=== PATIENT | male | born 1965 | race Asian ===

== ENCOUNTER 2016-06-04 10:59 | Inpatient (IN) | payer OTHER ==
[~2016-06-04] VITALS: Ht 167.6 cm; Wt 71.2 kg
[2016-06-04 11:25] VITALS: BP 149/94
--- NOTE | 2016-06-04 11:32 | NUR ---
Patient to bed 7.
--- NOTE | 2016-06-04 11:45 | NUR ---
PATIENT REFERRED FROM URGENT CARE FOR RLQ PAIN
--- NOTE | 2016-06-04 11:53 | NUR ---
SEEN BY PA
--- NOTE | 2016-06-04 11:59 | NUR ---
51/M presents to ED for evaluation of abdominal pain x 1 week. Pt was seen at an urgent care this morning and was referred to ED for further evaluation. Pt describes pain starting at epigastric area a week ago and now is c/o RLQ pain. Pt denies N/V/D, denies changes in appetite. Patient states he has been taking Motrin for pain but with little improvement. Patient denies any fever or chills. Abdomen soft, non tender with active bowel sounds x4 quadrants. Skin warm and dry, normal in color for ethnicity. Afebrile. Pt c/o pain with palpation to RLQ. Pt is AOX4, speaking swazi but also bhutanese speaking. I offered the patient a assistant women's basketball coach and he was okay with speaking swazi. I advised him we have translation if he has any questions and does not understand anything.
[2016-06-04] MEDS ORDERED: NACL 0.9% 1,000 ML IV SCH (12:06)
[2016-06-04] MEDS ORDERED: HYDROmorphone PFS 2 MG/ML SYR IVP ONE (12:10)
[2016-06-04] MEDS ORDERED: ONDANSETRON 4 MG/2 ML VIAL IVP ONE (12:10)
--- NOTE | 2016-06-04 12:15 | NUR ---
Pt last had breakfast this morning around 1000.
--- NOTE | 2016-06-04 12:24 | NUR ---
Patient being evaluated by physician at bedside.
--- NOTE | 2016-06-04 12:31 | NUR ---
Consent for CT signed by patient. I offered patient the translation phones but he preferred Portuguese. I advised if at any time he does not understand something or has a questions and wants Anguillan translation we can utilize the translation phones. All questions addressed.
--- NOTE | 2016-06-04 12:46 | NUR ---
Patient appears to be resting comfortably in bed. Vital Signs within normal limits. Respirations even and unlabored.
--- NOTE | 2016-06-04 12:53 | NUR ---
Patient taken to CT via gurney accompanied by CT techs.
--- NOTE | 2016-06-04 13:13 | NUR ---
Patient returned from CT and placed back into bed 7. IV fluids re-started.
--- NOTE | 2016-06-04 13:15 | NUR ---
Upon returning from CT, pt is c/o 8/10 pain to epigastric area and headache. Pt also c/o dizziness at this time. Dr. Car made aware.
--- NOTE | 2016-06-04 13:22 | NUR ---
Pt assisted to restroom.
--- NOTE | 2016-06-04 13:24 | NUR ---
Pt assisted back into bed 7. Placed back onto machine chocolate molder, pulse oximetry and blood pressure monitoring. VSS. Warm blanket and pillow provided. Pt placed in a position of comfort. Lights dimmed. All needs met.
[2016-06-04] MEDS ORDERED: LEVOFLOXACIN 750 MG/D5W PREMIX 150 ML IV ONE (14:00)
[2016-06-04] MEDS ORDERED: HYDROmorphone 1 MG/ML AMP IVP ONE (14:00)
[2016-06-04] MEDS ORDERED: metroNIDAZOLE 500 MG/NS PREMIX 100 ML IV ONE (14:00)
--- NOTE | 2016-06-04 14:05 | NUR ---
Dr. Car re-evaluating patient at bedside.
[2016-06-04] MEDS ORDERED: LORazepam 2 MG/ML VIAL IVP PRN (14:10)
[2016-06-04] MEDS ORDERED: ZESTRIL20 MG PO (14:30)
[2016-06-04] MEDS ORDERED: ONDANSETRON 4 MG/2 ML VIAL IVP STA (14:31)
--- NOTE | 2016-06-04 14:31 | NUR ---
Pt is noted with nausea and vomiting. Emesis bag provided. Dr. Car made aware.
--- NOTE | 2016-06-04 14:35 | NUR ---
Called M/S for report. Nurse unable to take report at this time. They will call when report can be given.
--- NOTE | 2016-06-04 14:58 | NUR ---
Pt expresses relief from nausea at this time. No longer vomiting. Pt resting calmly at this time. VSS. Levaquin running with no signs of infiltrations.
--- NOTE | 2016-06-04 15:12 | NUR ---
Patient will be admitted to care of Dr. Ott. Admited to Med/Surg. Will go to room 111-B. Belongings list completed. Report to Audie NEFF.
--- NOTE | 2016-06-04 15:15 | NUR ---
Dr. Hill is evaluating patient at bedside.
--- NOTE | 2016-06-04 15:38 | NUR ---
OR at bedside to take patient to surgery.
--- NOTE | 2016-06-04 15:43 | NUR ---
Report given to TAWANDA Holm from OR. yl was given to OR to be given over in OR. Pt taken over to OR via nola accompanied by Noman NEFF and Alta. I updated M/S nurse Audie about patient's status.
[2016-06-04 16:25] VITALS: BP 147/85
--- NOTE | 2016-06-04 16:25 | NUR ---
ADMITTED PT FROM ER, ALERT AND ORIENTED X4. BREATHING EVENLY AND UNLABORED ON ROOM AIR, KEPT HOB ELEVATED AT LEAST 30 DEGREES. NO SIGNS OF ACUTE DISTRESS. SKIN IS INTACT, WARM AND DRY. PT NOTED WITH 5/10 ABDOMINAL PAIN, PT WAS MEDICATED FROM ER AND VERBALIZED "PAIN IS BETTER". ALSO WITH NAUSEA AND VOMITING, NOTED 200ML'S OF GASTRIC CONTENT. WILL MEDICATE ORDERED. ABLE TO PERFORM ADL'S WITH STANDBY ASSIST, ABLE TO VOID INDEPENDENTLY WITH NO COMPLAINS. SAFETY PRECAUTIONS MAINTAINED. ORIENTED TO HOSPITAL ENVIRONMENT. CALL LIGHT WITHIN REACH. REPORT RECEIVED FROM OR NURSE. TO DO SURGERY TODAY LAP POSSIBLE OPEN APPENDECTOMY WITH DR. ECHAVARRIA. CONSENT ALREADY OBTAINED REPORTED.
[2016-06-04] MEDS ORDERED: LABETALOL 100 MG/20 ML VIAL IV SCH (16:38)
[2016-06-04] MEDS: LEVOFLOXACIN 750 MG/D5W PREMIX 150 ML IV SCH (16:49)
[2016-06-04] MEDS: ONDANSETRON 4 MG/2 ML VIAL IVP PRN (16:59)
[2016-06-04] MEDS: NACL 0.9% 1,000 ML IV SCH (17:07)
--- NOTE | 2016-06-04 17:36 | NUR ---
PT WENT OFF UNIT TO OR FOR PROCEUDRE, Addendum: 06/04/16 at 1756 by Audie Deras RN PT WENT OFF UNIT TO OR FOR PROCEDURE, CONSENT OBTAINED, PT IS ALERT AND ORIENTED, NO SIGNS OF ACUTE DISTRESS. ENDORSED TO ASSIGNED OR NURSE FOR CONTINUITY OF CARE
[2016-06-04] MEDS ORDERED: PROPOFOL 200 MG/20 ML VIAL IV ONE (17:41)
[2016-06-04] MEDS ORDERED: ONDANSETRON 4 MG/2 ML VIAL ONE (17:41)
[2016-06-04] MEDS ORDERED: DEXAMETHASONE 4 MG/ML VIAL ONE (17:41)
[2016-06-04] MEDS ORDERED: METOCLOPRAMIDE 10 MG/2 ML INJ VIAL ONE (17:41)
[2016-06-04] MEDS ORDERED: DESFLURANE 240 ML BTL INH ONE (17:41)
[2016-06-04] MEDS ORDERED: KETOROLAC 30 MG/ML VIAL ONE (17:41)
[2016-06-04] MEDS ORDERED: SUCCINYLCHOLINE CHLORIDE 200 MG/10 ML VIAL IVP ONE (17:41)
[2016-06-04] MEDS ORDERED: PHENYLEPHRINE 10 MG/ML VIAL ONE (17:41)
[2016-06-04] MEDS ORDERED: LIDOCAINE 2% 100 MG/5 ML SYR IVP ONE (17:41)
[2016-06-04] MEDS ORDERED: ROCURONIUM 50 MG/5 ML VIAL IV ONE (17:41)
[2016-06-04] MEDS ORDERED: GLYCOPYRROLATE 0.2 MG/ML VIAL ONE (17:41)
[2016-06-04] MEDS ORDERED: MIDAZOLAM 2 MG/2 ML VIAL ONE (17:45)
[2016-06-04] MEDS ORDERED: fentaNYL 0.05 MG/ML VIAL ONE (17:45)
[2016-06-04] MEDS ORDERED: PNEUMOCOCCAL VACCINE 23 MCG/0.5 ML VIAL IMVAC SCH (17:50)
[2016-06-04] MEDS ORDERED: CITRIC ACID/SODIUM CITRATE 30 ML UDC PO SCH (17:50)
[2016-06-04] MEDS: BUPIVACAINE-MPF 0.25% 30 ML VIAL INJ ONE ×2 (17:53→19:08)
[2016-06-04] MEDS ORDERED: ONDANSETRON 4 MG/2 ML VIAL IVP PRN (18:10)
[2016-06-04] MEDS ORDERED: HYDROmorphone 1 MG/ML AMP IVP PRN (18:10)
--- NOTE | 2016-06-04 19:02 | NUR ---
PT STILL OFF UNIT FOR SURGERY. ENDORSED TO ONCOMING PIPE STEM REPAIRER NURSE FOR CONTINUITY OF CARE.
--- NOTE | 2016-06-04 20:00 | NUR ---
Patient's Plan of Care was discussed and reviewed with ASSOCIATE ACCOUNT MANAGER: ELIZABETH AMARO
[2016-06-04] MEDS: HYDROmorphone PFS 2 MG/ML SYR ONE ×2 (20:07→20:18)
--- NOTE | 2016-06-04 20:40 | NUR ---
RECD. FROM OR S/P LAP APPENDECTOMY, VIA BED ACCOMPANIED BY OR NURSES, AWAKE , A/OX4. RESPIRATION EVEN AND UNLABORED. 02 SAT -96%, IV OF LR INFUSING AT TKO LEFT FOREARM G20. INCISION IN THE ABDOMEN (3) COVERED WITH BAND AID DRESSING, ALL DRY AND INTACT. PUT ON BILATERAL LEG SEQUENTIALS. VS STABLE. WANTS TO VOID, URINAL GIVEN. ABLE TO VOID ONLY 50 ML OF CLEAR YELLOW URINE. WILL CONTINUE TO MONITOR. PAIN 03/12, WILL MEDICATE ORDERED. AT THE BEDSIDE.
[2016-06-04] MEDS: metroNIDAZOLE 500 MG/NS PREMIX 100 ML IV SCH (21:00)
--- NOTE | 2016-06-04 21:40 | NUR ---
RESTING IN BED, VS STABLE. 02 SAT - 96%, NO RESPIRATORY DISTRESS NOTED. BROUGHT FOOD, INSTRUCTED NOT TO GIVE PATIENT IS ON FULL LIQUID DIET.
--- NOTE | 2016-06-04 22:00 | NUR ---
ENCOURAGED TO ALTERNATELY TURN TO SIDES AND MADE DEEP BREATHS OCCASIONALLY TO PREVENE PNEUMONIA. VERBALIZED UNDERSTANDING.
[2016-06-04] MEDS: MORPHINE SULFATE 2 MG/ML SYR IVP PRN (23:51)
[2016-06-04 23:54] VITALS: BP 122/63
[2016-06-05] MEDS: NACL 0.9% 1,000 ML IV SCH ×3 (00:10→20:10)
[2016-06-05] MEDS: MORPHINE SULFATE 2 MG/ML SYR IVP PRN ×3 (03:44→17:20)
[2016-06-05 04:00] VITALS: BP 106/58
--- NOTE | 2016-06-05 04:00 | NUR ---
NO N/V NOTED, JUST TAKE SOUP, REFUSED JUICES.
[2016-06-05] MEDS: metroNIDAZOLE 500 MG/NS PREMIX 100 ML IV SCH ×3 (04:35→21:38)
--- NOTE | 2016-06-05 07:20 | NUR ---
CONDITION REMAIN STABLE. ALL NEEDS ATTENDED. ENDORSED TO TAWANDA DAILY FOR CONTINUITY OF CARE.
--- NOTE | 2016-06-05 07:25 | NUR ---
RECEIVED REPORT FROM ALEX JOHNSON. PT IS A/OX4, PT HAS A LT FA IV, PATENT, INTACT, INFUSING WELL, PT IS S/P LAP APPENDECTOMY,PT HAS 3 ABDOMINAL BANDAIDS, NO S/S OF RESPIRATORY DISTRESS OR DISCOMFORT NOTED, DISCUSSED PLAN OF CARE WITH PT, PT VERBALIZED UNDERSTANDING, SAFETY/FALL PRECAUTIONS IN PLACE, CALL LIGHT WITHIN REACH, WILL CONTINUE TO MONITOR.
[2016-06-05 08:00] VITALS: BP 120/80
[2016-06-05] MEDS ORDERED: AUGMENTIN 500 M1 TAB PO (08:08)
[2016-06-05] MEDS ORDERED: NORCO 325 MG-7.1 TAB PO (08:09)
--- NOTE | 2016-06-05 08:32 | NUR ---
PATIENT HAS BEEN SCREENED AND CATEGORIZED MODERATE NUTRITION RISK. PATIENT WILL BE SEEN WITHIN 3-5 DAYS OF ADMISSION. 06/07/16-06/09/[address]
[2016-06-05] MEDS: PANTOPRAZOLE 40 MG INJ VIAL IVP SCH (09:06)
[2016-06-05] MEDS: ENOXAPARIN 40 MG/0.4 ML SYR SUBQ SCH (09:13)
--- NOTE | 2016-06-05 09:30 | NUR ---
PT IS RESTING IN BED, FAMILY IS AT BEDSIDE, WILL CONTINUE TO MONITOR.
--- NOTE | 2016-06-05 10:35 | NUR ---
CM NOTE PER SENIOR MECHANICAL TECHNICIAN FORREST EXT [phone], SEND REVIEWS TO [facility] AND [facility] OF [facility]. INITIAL REVIEW SENT TO [facility] FAX# [phone] PH# [place] [phone] AND TO [facility]IED [facility] FAX# [phone] PH# WILLIAM [phone]
--- NOTE | 2016-06-05 11:45 | NUR ---
PT IS SLEEPING AT THIS TIME.
[2016-06-05 12:00] VITALS: BP 118/73
--- NOTE | 2016-06-05 13:33 | NUR ---
DUE MEDICATIONS GIVE, NEPHEW IS WITH PT HELPING HIM WALK DOWN THE [place]. WILL CONTINUE TO MONITOR.
--- NOTE | 2016-06-05 14:00 | NUR ---
PT IS SLEEPING AT THIS TIME, FAMILY IS AT BEDSIDE. WILL CONTINUE TO MONITOR.
[2016-06-05] MEDS: LEVOFLOXACIN 750 MG/D5W PREMIX 150 ML IV SCH (15:10)
[2016-06-05 16:00] VITALS: BP 139/80
--- NOTE | 2016-06-05 19:15 | NUR ---
ENDORSED PT TO LVN. ELIZABETH FOR CONTINUITY OF CARE. PT STABLE AT THIS TIME.
--- NOTE | 2016-06-05 19:16 | NUR ---
RECD. RESTING IN BED, AWAKE, A/OX4. RESPIRATION EVEN AND UNLABORED. INCISION IN THE ABDOMEN (3) COVERED WITH BAND AID DRESSING, ALL DRY AND INTACT. STATED STILL WITH ON AND OFF EPIGASTRIC PAIN AND NAUSEA. PLAN OF CARE FOR THE SHIFT DISCUSSED. VERBALIZED UNDERSTANDING. PAIN IN THE SITE 03/12, CLAIMED TOLERABLE, WILL CALL NURSE WHEN PAIN INCREASES. AT THE BEDSIDE.
[2016-06-05] MEDS: ONDANSETRON 4 MG/2 ML VIAL IVP PRN (19:47)
--- NOTE | 2016-06-05 19:47 | NUR ---
NAUSEATED, MEDICATED WITH ZOFRAN 4 MG. IVP BY TAWANDA DYER.
--- NOTE | 2016-06-05 20:00 | NUR ---
Patient's Plan of Care was discussed and reviewed with UNIVERSITY REGISTRAR: ELIZABETH AMARO
--- NOTE | 2016-06-05 20:30 | NUR ---
STATED THAT PATIENT IS UNABLE TO EAT WELL IN THE HOSPITAL AND VERY SENSITIVE TO SMELL, WANTS TO GO HOME.
--- NOTE | 2016-06-05 20:47 | NUR ---
NO NAUSEA NOTED. RESTING COMFORTABLY IN BED.
--- NOTE | 2016-06-05 21:00 | NUR ---
ENCOURAGED TO AMBULATE MORE TO BE ABLE TO PASS GAS AND HAVE BM.
[2016-06-05] MEDS: MAGNESIUM OXIDE 400 MG TAB PO SCH (21:40)
[2016-06-06] VITALS: BP 126/68
--- NOTE | 2016-06-06 | NUR ---
RESTING COMFORTABLY SLEEPING IN BED.
[2016-06-06] MEDS: NACL 0.9% 1,000 ML IV SCH ×2 (00:50→15:10)
[2016-06-06] MEDS: metroNIDAZOLE 500 MG/NS PREMIX 100 ML IV SCH ×3 (04:55→21:30)
--- NOTE | 2016-06-06 06:30 | NUR ---
NO APPETITE TO EAT. VOMITED ONCE DURING SHIFT. CONDITION REMAIN STABLE. WILL ENDORSE TO AM NURSE FOR CONTINUITY OF CARE, FOR DISCHARGE TODAY IF PATIENT WILL BE ABLE TO TOLERATE DIET.
[2016-06-06] MEDS: MORPHINE SULFATE 2 MG/ML SYR IVP PRN (07:03)
--- NOTE | 2016-06-06 07:25 | NUR ---
ENDORSED TO TAWANDA YOUNG FOR CONTINUITY OF CARE.
--- NOTE | 2016-06-06 07:26 | NUR ---
RECEIVED REPORT AT PT BEDSIDE. PT RESTING IN BED. C/O NAUSEA AND HEADACHE, WILL MEDICATE ORDERED. PT STATES FAMILY WILL COME HELP AMBULATE HIM LATER. PT IV INTACT AND PATENT. CALL LIGHT WITHIN REACH. WILL CONTINUE TO MONITOR.
[2016-06-06 08:00] VITALS: BP 133/79
--- NOTE | 2016-06-06 08:10 | NUR ---
PATIENT WAS SEEN BY DR. LOPEZ. PATIENT UNABLE TO TOLERATE PO FOOD AT THIS TIME. WILL CONTINUE TO MONITOR.
[2016-06-06] MEDS ORDERED: MAGNESIUM OXIDE 400 MG TAB PO SCH (09:00)
[2016-06-06] MEDS: ONDANSETRON 4 MG/2 ML VIAL IVP PRN ×2 (09:06→22:22)
[2016-06-06] MEDS: PANTOPRAZOLE 40 MG INJ VIAL IVP SCH (09:06)
[2016-06-06] MEDS: MAGNESIUM OXIDE 400 MG TAB PO SCH (09:06)
[2016-06-06] MEDS: ENOXAPARIN 40 MG/0.4 ML SYR SUBQ SCH (09:12)
--- NOTE | 2016-06-06 09:20 | NUR ---
PT AMBULATED AROUND FACILITY WITH FAMILY. NO S/S OF ACUTE DISTRESS. PT C/O NAUSEA, WILL MEDICATE ORDERED. IV SITE PATENT AND INTACT.
--- NOTE | 2016-06-06 11:30 | NUR ---
PATIENT STILL HAVING EPISODES OF NAUSEA WITH VOMITING. DR. LOPEZ PAGED AT THIS TIME. AWAITING CALLBACK.
--- NOTE | 2016-06-06 11:47 | NUR ---
CM NOTE CONCURRENT REVIEW SENT TO [facility] FAX# [phone] PH# KRIST[place] [phone] AND TO ALLIED PHYS FAX# [phone] PH# WILLIAM [phone]
--- NOTE | 2016-06-06 13:00 | NUR ---
PT RESTING IN BED AT THIS TIME.
[2016-06-06] MEDS: LEVOFLOXACIN 750 MG/D5W PREMIX 150 ML IV SCH (15:07)
[2016-06-06 16:00] VITALS: BP 156/96
--- NOTE | 2016-06-06 16:00 | NUR ---
PATIENT STILL NAUSEATED. DR. JERICHO BLOCK. AWAITING CALLBACK. DR. JESSICA BLOCK, AWAITING CALLBACK.
[2016-06-06] MEDS ORDERED: LABETALOL 100 MG/20 ML VIAL IVP SCH (16:55)
[2016-06-06] MEDS ORDERED: METOCLOPRAMIDE 10 MG/2 ML INJ VIAL IVP PRN (16:55)
--- NOTE | 2016-06-06 16:55 | NUR ---
NOTIFIED DR. LOPEZ OF PATIENTS NAUSEA/VOMITING, NEW ORDERS RECEIVED. NOTIFIED OF INCREASED BP, NEW ORDERS RECEIVED. PATIENT IN RESTROOM AT THIS TIME VOMITING.
--- NOTE | 2016-06-06 19:12 | NUR ---
ENDORSED PLAN OF CARE TO RN NAOMI AT PT BEDSIDE. NO S/S OF ACUTE DISTRESS NOTED.
--- NOTE | 2016-06-06 19:35 | NUR ---
RECEIVED PT IN STABLE CONDITION FROM AM NURSE. AWAKE,ALERT AND ORIENTED X4. MED SURG PT. CAN BE AMBULATORY. WITH NO C/O ANY PAIN AT THIS TIME. HAS IVF INFUSING WELL ON THE LT FA #20. CLEAR AND PATENT. S/P LAP APPENDECTOMY. WITH X3 LOWER ABDOMINAL INCISIONS WITH BAND AID. ,ABDOMEN SLIGHTLY DISTENDED. .WITH SMALL BOWEL SOUNDS ON LLQ. DR. ECHAVARRIA CAME AND SEEN PT. ABLE TO SEE KUB RESULT. PLAN OF CARE DISCUSSED AND VERBALIZED UNDERSTANDING. CALL LIGHT PLACED WITHIN EAYS REACH. WILL CONTINUE TO MONITOR.
[2016-06-06] MEDS ORDERED: ACETAMINOPHEN 325 MG TAB PO PRN (21:55)
--- NOTE | 2016-06-06 21:55 | NUR ---
PAGED DR. LOPEZ FOR PT C/O MILD HEADACHE. ESL PROFESSOR CALLED BACK. MADE AWARE . ORDERS MADE.
[2016-06-06] MEDS: HYDROcodone/APAP 5/325 MG 1 TAB TAB PO PRN (22:17)
--- NOTE | 2016-06-06 22:22 | NUR ---
PT ABOUT TO TAKE THE NORCO FOR H/A BUT FEEL NAUSEATED. NORCO ON HOLD. MEDICATED FOR NAUSEA. WILL CONTINUE TO MONITOR.
[2016-06-07 00:02] VITALS: BP 150/90
[2016-06-07] MEDS: HYDROcodone/APAP 5/325 MG 1 TAB TAB PO PRN (00:02)
--- NOTE | 2016-06-07 01:02 | NUR ---
PT IS SLEEPING. NO MORE S/S OF ANY DISCOMFORT NOR PAIN NOTED. WILL CONTINUE TO MONITOR.
[2016-06-07] MEDS: NACL 0.9% 1,000 ML IV SCH ×2 (02:10→12:10)
--- NOTE | 2016-06-07 03:00 | NUR ---
SLEEPING WELL AT THIS TIME. NO S/S OF ANY DISCOMFORT NOTED.
[2016-06-07] MEDS: metroNIDAZOLE 500 MG/NS PREMIX 100 ML IV SCH ×3 (03:12→12:22)
--- NOTE | 2016-06-07 05:00 | NUR ---
AWAKE,NO C/O ANY NAUSEA NOR VOMITING NOTED THIS AM.
--- NOTE | 2016-06-07 07:17 | NUR ---
RECEIVED REPORT FROM NIGHT NURSE. PT IS AAOX4, ON ROOM AIR, IV TO LEFT FA INFUSING WELL. S/P LAP APPY 3 ABD INCISIONS WITH BANDAIDE Addendum: 06/07/16 at 0954 by Sushma Hidalgo RN S/P LAP APPY 3 ABD BAND AIDS DRY AND INTACT. INITIAL ASSESSMENT COMPLETED. REVIEWED PLAN OF CARE WITH PT, PT VERBALIZED UNDERSTANDING. ALL NEEDS MET. CALL LIGHT WITHIN REACH. WILL CONTINUE TO MONITOR.
--- NOTE | 2016-06-07 07:18 | NUR ---
ENDORSED PT IN STABLE CONDITION TO AM NURSE FOR CONTINUITY OF CARE.
[2016-06-07 08:00] VITALS: BP 144/87
--- NOTE | 2016-06-07 08:51 | NUR ---
PT CURRENTLY WALKING AROUND UNIT WITH FAMILY MEMBER. NO S/S OF DISCOMFORT NOTED. WILL CONTINUE TO MONITOR.
[2016-06-07] MEDS: MAGNESIUM OXIDE 400 MG TAB PO SCH (09:19)
[2016-06-07] MEDS: PANTOPRAZOLE 40 MG INJ VIAL IVP SCH (09:19)
[2016-06-07] MEDS: ONDANSETRON 4 MG/2 ML VIAL IVP PRN (09:20)
--- NOTE | 2016-06-07 09:20 | NUR ---
DUE MEDICATIONS GIVEN, PT TOLERATED WELL. ALL NEEDS MET. AT BEDSIDE. CALL LIGHT WITHIN REACH.
[2016-06-07] MEDS: ENOXAPARIN 40 MG/0.4 ML SYR SUBQ SCH (09:30)
--- NOTE | 2016-06-07 10:48 | NUR ---
CM NOTE CONCURRENT REVIEW SENT TO [facility] FAX# [phone] PH# KRIST[place] [phone] AND TO ALLIED PHYS FAX# [phone] PH# WILLIAM [phone]
--- NOTE | 2016-06-07 12:22 | NUR ---
DUE MEDICATIONS GIVEN. PT CURRENTLY IN BED EATING LUNCH, PT TOLERATED WELL, PT STATES NO NAUSEA. CALL LIGHT WITHIN REACH. WILL CONTINUE TO MONITOR.
[2016-06-07] MEDS ORDERED: POTASSIUM CHLORIDE 10 MEQ TABER PO SCH (13:00)
--- NOTE | 2016-06-07 13:45 | NUR ---
PT CURRENTLY RESTING IN BED NO S/S OF DISTRESS NOTED WILL CONTINUE TO MONITOR.
--- NOTE | 2016-06-07 15:14 | NUR ---
DISCUSSED DISCHARGE PLAN WITH PT. PT VERBALIZED UNDERSTANDING.
[2016-06-07] MEDS: LEVOFLOXACIN 750 MG/D5W PREMIX 150 ML IV SCH (15:38)
--- NOTE | 2016-06-07 15:38 | NUR ---
DUE MEDICATIONS GIVEN. PT CURRENTLY RESTING IN BED. NO S/S OF DISTRESS NOTED. ALL NEEDS MET
[2016-06-07 16:00] VITALS: BP 149/92
--- NOTE | 2016-06-07 16:15 | NUR ---
PT SIGNED ALL DISCHARGE PAPERWORK, EDUCATION GIVEN, FOLLOW UP INFORMATION GIVEN, PT VERBALIZED UNDERSTANDING. PRESCRIPTION GIVEN. PT AWAITING CLINICAL EDUCATION COORDINATOR.
--- NOTE | 2016-06-07 16:50 | NUR ---
FAMILY MEMBER HERE TO PHOTOGRAMMETRIC STEREO COMPILER PT. IV REMOVED TIP INTACT. ALL PERSONAL BELONGINGS WITH PT. ARM BANDS REMOVED.
--- NOTE | 2016-06-07 17:03 | NUR ---
PT WAS WHEELED OUT TO FRONT LOBBY IN STABLE CONDITION.
== END 2016-06-07 17:03 | disposition home or self-care (01) | DRG 225 ==
LOC: MED 10:59 → MTU 14:17
PROVIDERS: ADMIT Hospitalist; ATTEND Hospitalist
PROC: 0W9G4ZZ Drainage of Peritoneal Cavity, Percutaneous Endoscopic Approach (ICD-10-PCS; 2016-06-04)
PROC: 0DTJ4ZZ Resection of Appendix, Percutaneous Endoscopic Approach (ICD-10-PCS; principal; 2016-06-04 15:50)
DX: K35.3 Acute appendicitis with localized peritonitis (principal); K56.7 Ileus, unspecified; I10 Essential (primary) hypertension; E83.42 Hypomagnesemia; R63.0 Anorexia; E87.6 Hypokalemia